=== PATIENT | male | born 1985 | race African-American/Black ===

== ENCOUNTER 2024-09-19 10:15 | Emergency (ER) | payer OTHER ==
[~2024-09-19] VITALS: Ht 177.8 cm; Wt 73.2 kg
[2024-09-19 10:22] VITALS: TEMP 99
[2024-09-19] MEDS: METHOCARBAMOL 500 MG TABLET PO ONE (12:40)
[2024-09-19] MEDS: LIDOCAINE 5% TRANSDERMAL PATCH TD ONE (12:40)
[2024-09-19] MEDS: IBUPROFEN 600 MG TABLET PO ONE (12:40)
[2024-09-19] MEDS ORDERED: METH-659 PO (13:04)
[2024-09-19] MEDS ORDERED: IBUP-1492 PO (13:04)
[2024-09-19 13:32] VITALS: BP 110/67; PULSE 75; RESP 18; O2SAT 100
== END 2024-09-19 13:38 | disposition home or self-care (01) ==
LOC: EMS 10:15
DX: S39.012A Strain of muscle, fascia and tendon of lower back, initial encounter (principal); X58.XXXA Exposure to other specified factors, initial encounter; Y93.89 Activity, other specified; Y92.89 Other specified places as the place of occurrence of the external cause; Y99.8 Other external cause status
CPT/HCPCS: 99284; Z7502; Z7610